=== PATIENT | male | born 1985 | race Caucasian/White ===

== ENCOUNTER 2018-10-22 16:55 | Emergency (ER) | payer OTHER ==
[~2018-10-22] VITALS: Ht 172.7 cm; Wt 104.3 kg
[~2018-10-22 16:55] MED LIST: ALBU.083IS IH; ALBU90OI INH; Albuterol2.5 MG/0.5 INH; BENZ100A PO; BUTASPCAF PO; Bactrim Ds Tab1 EACH PO; CEPH500 PO; CLIN300 PO; Cheratussin AC118 ML PO; Cleocin HCl150 MG PO; Cleocin HCl300 MG PO; DOXY100 PO; HYDACE5 PO; KETO10 PO; METPRE4DP PO; NAPR500 PO; OXYACE5T PO; OXYC5 PO; PRED20 PO; PROM25 PO; Prednisone20 MG PO; RXALBOI INH; RXOXYACE PO; SULTRIDS PO; TRAM50 PO; Tindamax500 MG PO; Ultram50 MG PO; Zithromax250 MG PO
[2018-10-22] MEDS ORDERED: Vibramycin100 MG PO (19:36)
== END 2018-10-22 19:59 | disposition home or self-care (01) ==
LOC: ER 16:55
DX: L03.116 Cellulitis of left lower limb (principal); R00.0 Tachycardia, unspecified; Z88.0 Allergy status to penicillin; F17.210 Nicotine dependence, cigarettes, uncomplicated
CPT/HCPCS: 93971; 99284-25

== ENCOUNTER 2019-01-28 22:08 | Emergency (ER) | payer OTHER ==
[~2019-01-28] VITALS: Ht 172.7 cm; Wt 90.7 kg
[~2019-01-28 22:08] MED LIST changes: +Vibramycin100 MG PO
[2019-01-28] MEDS ORDERED: CEPH500 PO (22:59)
[2019-01-28] MEDS ORDERED: Bactrim Ds Tab1 EACH PO (22:59)
== END 2019-01-28 23:20 | disposition home or self-care (01) ==
LOC: ER 22:08
DX: L03.116 Cellulitis of left lower limb (principal); Z88.0 Allergy status to penicillin; F17.210 Nicotine dependence, cigarettes, uncomplicated
CPT/HCPCS: 99283; A9270-GY

== ENCOUNTER 2019-05-04 20:43 | Inpatient (IN) | payer OTHER ==
[~2019-05-04] VITALS: Ht 172.7 cm; Wt 109.4 kg
[2019-05-04] MEDS ORDERED: OXYC15ER PO (21:22)
[2019-05-04 22:19] LABS: BASOPHILS ABSOLUTE AUTO 0.03 K/mm3 (0.00-0.23); BASOPHILS PERCENT AUTO 0 % (0-2); EOSINOPHILS PERCENT AUTO 0 % (0-6); Hematocrit 44.9 % (37.0-53.0); Hemoglobin 14.6 g/dL (13.5-17.5); IMMATURE GRAN ABSOLUTE AUTO 0.12 K/mm3 (0.00-0.10); IMMATURE GRAN PERCENT AUTO 1 % (0-1); LYMPHOCYTES ABSOLUTE AUTO 1.57 K/mm3 (0.84-5.20); LYMPHOCYTES PERCENT AUTO 11 % (21-46); MONOCYTES ABSOLUTE AUTO 0.58 K/mm3 (0.16-1.47); MONOCYTES PERCENT AUTO 4 % (4-13); Mean Corpuscular HGB 27.9 pg (26.0-34.0); Mean Corpuscular HGB Conc 32.5 g/dL (31.5-36.5); Mean Corpuscular Volume 86 fL (80-100); Mean Platelet Volume 9.7 fL (9.1-12.4); NEUTROPHILS ABSOLUTE AUTO 12.45 K/mm3 (1.96-9.15); NEUTROPHILS PERCENT AUTO 85 % (41-73); Platelet Count 245 K/mm3 (150-400); RDW Coefficient Variation 13.4 % (11.7-14.2); RDW Standard Deviation 42.1 fL (35.1-46.3); Red Blood Cell Count 5.23 M/mm3 (4.30-5.90); White Blood Cell Count 14.75 K/mm3 (4.00-11.30)
[2019-05-04 22:31] LABS: Alanine Aminotransfer (ALT/SGP 45 U/L (12-78); Albumin, Blood 3.4 g/dL (3.4-5.0); Albumin/Globulin Ratio 0.7 (0.8-1.8); Alk Phos 101 U/L (50-136); Anion Gap 11 mmol/L (6-16); Aspartate Aminotrans (AST/SGOT 38 U/L (12-37); Bilirubin, Total 1.6 mg/dL (0.1-1.0); Blood Urea Nitrogen 9 mg/dL (8-24); Bun/Creatinine Ratio 10.1 (12.0-20.0); CO2, Blood 25 mmol/L (21-32); Calcium, Blood 8.8 mg/dL (8.5-10.1); Chloride, Blood 94 mmol/L (98-108); Creatinine, Blood 0.89 mg/dL (0.60-1.20); Globulin, Blood 5.1 g/dL (2.2-4.0); Glomerular Filtration Rate >60 (60-); Glucose, Blood 101 mg/dL (70-99); Potassium, Blood 3.8 mmol/L (3.5-5.5); Sodium, Blood 130 mmol/L (136-145); Total Protein, Blood 8.5 g/dL (6.4-8.2)
[2019-05-05 01:33] LABS: Source, Urine Voided
[2019-05-05 01:38] LABS: Bilirubin, Urine Neg (Neg); Blood, Urine 4+ (Neg); Glucose Qualitative, Urine Neg (Neg); Ketones, Urine Neg (Neg); Leukocyte Esterase, Urine Neg (Neg); Nitrite, Urine Neg (Neg); Protein, Urine 3+ (Neg); Specific Gravity, Urine 1.005 (1.003-1.022); Urobilinogen, Urine NORM (Normal)
[2019-05-05 01:39] LABS: Appearance, Urine Clear (Clear); Color, Urine Yellow (P-Yellow)
[2019-05-05 01:44] LABS: Bacteria Rare /hpf; Squamous Epithelial Cells Rare /hpf (Few); White Blood Cells, Urine 0-2 /hpf (0-5)
[2019-05-05] MEDS ORDERED: Fiorinal Capsu1 EACH PO (01:50)
[2019-05-05 01:53] LABS: U Amphetamine Screen DETECTED; U Barbituate Screen DETECTED; U Benzodiazapine Screen Not Detected; U Buprenorphine Screen Not Detected; U Cannabinoids Screen Not Detected; U Cocaine Screen Not Detected; U Methadone Screen Not Detected; U Methamphetamine Screen DETECTED; U Opiates Screen Not Detected; U Oxycodone Screen DETECTED; U Phencyclidine Screen Not Detected; U Propoxyphene Screen Not Detected
--- NOTE | 2019-05-05 07:54 | NUR ---
SHIFT SUMMARY PATEINT REFUSES TO ALLOW STAFF TO DRAW ORDERED LAB WORK. PATIENT ALSO REFUSES LOVENOX INJECTION AND STATES THAT HE WILL NOT ALLOW STAFF TO USE ANY MORE NEEDLES ON HIM. EXPLAINED TO PATIENT THE NEED TO REPEAT LAB WORK AND LOVENOX SHOT BUT PATIENT ADAMANTLY REFUSES. PATIENT REQUESTED TO GO OUTSIDE TO SMOKE CIGARETTE. EXPLAINED TO PATIENT THAT HE HAD AN ANTIBIOTIC RUNNING AND THAT IT WOULD BE RUNNING FOR 1 HOUR. PATIENT STATED THAT HE COULDNT WAIT AN HOUR AND REQUESTED TO BE DISCONNECTED. PATIENTS FAMILY TOLD PATIENT HE COUD WAIT. ONCE IV ABX WAS COMPLETED PATIENT TOLD NURSING STAFF HE WAS GOING DOWN STAIRS. PATIENT WAS DISCONNECTED FROM IV FLUIDS AND TOLD THAT HE HAD TO RETURN WITHIN 1 HOUR. PATIENT WAS AGREEABLE TO BEING BACK IN HIS ROOM BEFORE 60 MINUTES. PATIENT TAKEN OUTSIDE BY FAMILY MEMBER VIA WHEELCHAIR. THIS WAS AT APPROXIMATELY 0615 AND IT IS NOW 0758 AND PATIENT HAS STILL NOT RETURNED TO HIS ROOM. REPORT GIVEN TO [facility] NURSE.
--- NOTE | 2019-05-05 08:15 | NUR ---
PER NIGHT RN PATIENT LEFT TO GO OUT FOR SMOKE AT 0615 AM AND WAS TOLD TO RETURN WITHIN ONE HOUR. PATIENT RETURNS ABOUT 5 MINUTES AGO. ADVISED AGAIN IF HE IS GONE FOR MORE THAN 1 HOUR HE WILL BE CONSIDERED DISCHARGED. ADVISED TO GET INTO GOWN SO THIS RN CAN DO EVAL AND WILL BOX BUILDER FLUIDS AND DO VITAL SIGNS. ADVISED AND IN TO SEE PATIENT AT THIS TIME.
--- NOTE | 2019-05-05 08:27 | NUR ---
REFUSES LAB DRAW FOR TODAY. DR.JAIN ABRAMS
--- NOTE | 2019-05-05 16:09 | NUR ---
PATIENT LEFT AMA. AWARE NEEDS TO HAVE LEG CONDITION TAKEN CARE OF. STS "GOING RIGHT TO [place]." WALKS OUT BEHIND W/C.
== END 2019-05-05 15:57 | disposition left against medical advice (07) | DRG 872 ==
LOC: ER 20:43 → MEDS 05-05
PROVIDERS: Emergency Medicine; ADMIT Hospitalist
DX: A41.9 Sepsis, unspecified organism (principal); E87.1 Hypo-osmolality and hyponatremia; L03.116 Cellulitis of left lower limb; L03.115 Cellulitis of right lower limb; R65.20 Severe sepsis without septic shock; F17.200 Nicotine dependence, unspecified, uncomplicated; F19.10 Other psychoactive substance abuse, uncomplicated; Z88.0 Allergy status to penicillin
CPT/HCPCS: 36415; 71045; 80053; 81001; 83605; 85025; 87040; 87070; 87077; 87147; 87186; 87205; 90471; 90714; 96361; 96365; 96366; 99285-25; A9270; J1885; J3370; J7030; J7120